=== PATIENT | male | born 1940 | race Caucasian/White ===

== ENCOUNTER 2022-03-30 10:48 | Inpatient (IN) ==
[2022-03-30] MEDS ORDERED: 0.9 % Sodium Chloride 1,000 ML IVC ONE (12:16)
[2022-03-30 12:28] LABS: Basophils % 0.6 %; Eosinophils # 0.1 K/mcL (0.0-0.6); Eosinophils % 1.5 %; Hematocrit 35.9 % (37.5-50.1); Hemoglobin 12.1 g/dL (12.9-16.9); Immature Granulocytes % 0.5 % (0-4); Lymphocytes % 15.5 %; Mean Corpuscular HGB Conc 33.7 g/dL (31.6-35.5); Mean Corpuscular Volume 92.1 fL (83.0-100.0); Mean Platelet Volume 9.5 fL (9.4-12.4); Monocytes # 0.5 K/mcL (0.0-1.3); Monocytes % 7.7 %; Platelet Count 210 K/mcL (140-400); Red Cell Distribution Width 14.2 % (11.5-14.5); Segmented Neutrophils % 74.2 %; White Blood Count 6.7 K/mcL (4.3-11.1)
[2022-03-30 12:35] LABS: INR 1.2; Prothrombin Time 13.8 Seconds (9.4-12.1)
[2022-03-30 12:38] LABS: Activated Partial Thrombo Time 33.3 Seconds (26.0-36.0)
[2022-03-30 13:03] LABS: BUN/Creatinine Ratio 23 (6-26); Blood Urea Nitrogen 16 mg/dL (8-23); Calcium 8.7 mg/dL (8.6-10.3); Carbon Dioxide 24 mEq/L (23-29); Chloride 102 mEq/L (98-107); Glucose 99 mg/dL (70-105); Osmolality,Calculated 277 (280-300); Potassium 4.2 mEq/L (3.5-5.1); Sodium 133 mEq/L (136-145); eGFR For African Americans > 60 (> 60); eGFR For Non-African Americans > 60 (> 60)
[2022-03-30] MEDS ORDERED: Isovue-370 500 ML BOTTLE IVP ONE (13:42)
[2022-03-30] MEDS ORDERED: 0.9 % Sodium Chloride 1,000 ML IV ONE (15:10)
[2022-03-30] MEDS ORDERED: cefTRIAXone 1,000 MG in 0.9 % Sodium Chloride 10 ML IVP ONE (15:17)
[2022-03-30] MEDS ORDERED: Azithromycin 500 MG in 0.9 % Sodium Chloride 250 ML IVPB ONE (15:57)
[2022-03-30] MEDS ORDERED: Naloxone 0.4 MG/ML INJ IVP PRN (16:39)
[2022-03-30] MEDS ORDERED: Ondansetron 4 MG/2 ML VIAL IVP PRN (16:39)
[2022-03-30] MEDS ORDERED: Acetaminophen 325 MG TABLET PO PRN (16:39)
[2022-03-30] MEDS ORDERED: Apixaban 5 MG TABLET PO SCH (16:45)
[2022-03-30] MEDS ORDERED: Perflutren Lipid Microsphere 1.3 ML in 0.9 % Sodium Chloride 8.7 ML IVP PRN (17:01)
[2022-03-30 17:26] LABS: Influenza A PCR Negative (Negative); Influenza B PCR Negative (Negative); Resp. Syncytial Virus PCR Negative (Negative)
[2022-03-30 17:37] LABS: Troponin I < 0.03 ng/mL (< 0.04)
[2022-03-30 17:51] LABS: Thyroid Stimulating Hormone 2.752 mcIU/mL (0.340-5.600)
[2022-03-30 18:13] LABS: SARS-CoV-2 by PCR (In House) Negative (Negative)
[2022-03-30] MEDS: Apixaban 5 MG TABLET PO SCH (20:17)
[2022-03-30] MEDS: Ipratropium/Albuterol Neb 3 ML IH SCH (20:46)
[2022-03-31] MEDS: Ipratropium/Albuterol Neb 3 ML IH SCH ×4 (03:52→20:23)
[2022-03-31] MEDS: Apixaban 5 MG TABLET PO SCH ×2 (08:51→20:26)
[2022-03-31] MEDS: Metoprolol XL (24 HR) Succ 50 MG TAB.ER.24H PO SCH (08:51)
[2022-03-31] MEDS: DilTIAZem 50 MG/50 ML IV.SOLN IVC SCH ×2 (09:02→18:27)
[2022-03-31 09:46] LABS: Basophils % 0.7 %; Eosinophils # 0.1 K/mcL (0.0-0.6); Eosinophils % 1.8 %; Hematocrit 33.1 % (37.5-50.1); Hemoglobin 11.2 g/dL (12.9-16.9); Immature Granulocytes % 0.2 % (0-4); Lymphocytes # 1.1 K/mcL (0.6-4.6); Lymphocytes % 19.1 %; Mean Corpuscular HGB Conc 33.8 g/dL (31.6-35.5); Mean Corpuscular Hemoglobin 31.5 pg (28.0-33.3); Mean Platelet Volume 9.7 fL (9.4-12.4); Monocytes # 0.4 K/mcL (0.0-1.3); Monocytes % 6.3 %; Platelet Count 191 K/mcL (140-400); Red Blood Count 3.56 M/mcL (4.19-5.50); Red Cell Distribution Width 14.4 % (11.5-14.5); Segmented Neutrophils % 71.9 %; White Blood Count 5.5 K/mcL (4.3-11.1)
[2022-03-31] MEDS ORDERED: Perflutren Lipid Microsphere 1.3 ML in 0.9 % Sodium Chloride 8.7 ML IVP PRN ×3 (10:50→10:59)
[2022-03-31 11:28] LABS: Alanine Aminotransferase 27 Units/L (7-52); Albumin 3.1 g/dL (3.5-5.7); Albumin/Globulin Ratio 1.1 (1.1-2.2); Alkaline Phosphatase 71 Units/L (34-104); Aspartate Amino Transferase 22 Units/L (13-39); BUN/Creatinine Ratio 18 (6-26); Bilirubin,Total 0.5 mg/dL (0.3-1.0); Blood Urea Nitrogen 12 mg/dL (8-23); Calcium 8.1 mg/dL (8.6-10.3); Carbon Dioxide 25 mEq/L (23-29); Chloride 106 mEq/L (98-107); Globulin 2.9 g/dL (2.4-3.5); Glucose 127 mg/dL (70-105); Osmolality,Calculated 279 (280-300); Potassium 4.3 mEq/L (3.5-5.1); Sodium 134 mEq/L (136-145); eGFR For African Americans > 60 (> 60); eGFR For Non-African Americans > 60 (> 60)
[2022-03-31] MEDS: cefTRIAXone 1,000 MG in 0.9 % Sodium Chloride 10 ML IVP SCH (15:22)
[2022-03-31] MEDS ORDERED: Azithromycin 500 MG in D5% in Water 250 ML IVPB SCH (18:00)
[2022-04-01] MEDS: DilTIAZem 50 MG/50 ML IV.SOLN IVC SCH ×2 (02:55→13:29)
[2022-04-01] MEDS: Ipratropium/Albuterol Neb 3 ML IH SCH (04:13)
[2022-04-01] MEDS ORDERED: Ipratropium/Albuterol Neb 3 ML IH PRN (05:59)
[2022-04-01 06:09] LABS: Basophils % 0.7 %; Eosinophils # 0.1 K/mcL (0.0-0.6); Eosinophils % 2.3 %; Hematocrit 34.1 % (37.5-50.1); Hemoglobin 11.6 g/dL (12.9-16.9); Immature Granulocytes % 0.2 % (0-4); Lymphocytes # 1.5 K/mcL (0.6-4.6); Lymphocytes % 23.7 %; Mean Corpuscular Hemoglobin 31.4 pg (28.0-33.3); Mean Corpuscular Volume 92.2 fL (83.0-100.0); Mean Platelet Volume 9.7 fL (9.4-12.4); Monocytes # 0.5 K/mcL (0.0-1.3); Monocytes % 8.3 %; Platelet Count 185 K/mcL (140-400); Red Cell Distribution Width 14.4 % (11.5-14.5); Segmented Neutrophils % 64.8 %; White Blood Count 6.1 K/mcL (4.3-11.1)
[2022-04-01 06:39] LABS: BUN/Creatinine Ratio 21 (6-26); Blood Urea Nitrogen 12 mg/dL (8-23); Calcium 8.2 mg/dL (8.6-10.3); Carbon Dioxide 23 mEq/L (23-29); Chloride 107 mEq/L (98-107); Glucose 109 mg/dL (70-105); Osmolality,Calculated 278 (280-300); Potassium 3.9 mEq/L (3.5-5.1); Sodium 134 mEq/L (136-145); eGFR For African Americans > 60 (> 60); eGFR For Non-African Americans > 60 (> 60)
[2022-04-01] MEDS: Metoprolol XL (24 HR) Succ 50 MG TAB.ER.24H PO SCH (09:31)
[2022-04-01] MEDS: Azithromycin 250 MG TABLET PO SCH (09:31)
[2022-04-01] MEDS: Venlafaxine XR (24 HR) 37.5 MG CAP.ER.24H PO SCH (09:31)
[2022-04-01] MEDS: Finasteride 5 MG TABLET PO SCH (09:31)
[2022-04-01] MEDS: Apixaban 5 MG TABLET PO SCH ×2 (09:31→21:06)
[2022-04-01 10:13] LABS: Magnesium 1.8 mg/dL (1.6-2.6)
[2022-04-01] MEDS ORDERED: Perflutren Lipid Microsphere 1.3 ML in 0.9 % Sodium Chloride 8.7 ML IVP PRN (11:58)
[2022-04-01] MEDS: DilTIAZem CD (24hr) 120 MG CAP.ER.24H PO SCH (12:25)
[2022-04-01] MEDS: cefTRIAXone 1,000 MG in 0.9 % Sodium Chloride 10 ML IVP SCH (15:39)
[2022-04-02 03:12] LABS: BUN/Creatinine Ratio 23 (6-26); Blood Urea Nitrogen 15 mg/dL (8-23); Calcium 8.3 mg/dL (8.6-10.3); Carbon Dioxide 22 mEq/L (23-29); Chloride 105 mEq/L (98-107); Glucose 110 mg/dL (70-105); Magnesium 1.8 mg/dL (1.6-2.6); Osmolality,Calculated 279 (280-300); Potassium 4.2 mEq/L (3.5-5.1); Sodium 134 mEq/L (136-145); eGFR For African Americans > 60 (> 60); eGFR For Non-African Americans > 60 (> 60)
[2022-04-02] MEDS: Venlafaxine XR (24 HR) 37.5 MG CAP.ER.24H PO SCH (08:07)
[2022-04-02] MEDS: Apixaban 5 MG TABLET PO SCH (08:07)
[2022-04-02] MEDS: Finasteride 5 MG TABLET PO SCH (08:07)
[2022-04-02] MEDS: DilTIAZem CD (24hr) 120 MG CAP.ER.24H PO SCH (08:07)
[2022-04-02] MEDS: Azithromycin 250 MG TABLET PO SCH (08:07)
[2022-04-02] MEDS: Metoprolol XL (24 HR) Succ 50 MG TAB.ER.24H PO SCH (08:08)
[2022-04-02 11:41] VITALS: O2SAT 97
[2022-04-02 15:44] VITALS: BP 114/61; PULSE 79; TEMP 98
[2022-04-02] MEDS ORDERED: Cefdinir 300 MG CAPSULE PO SCH (21:00)
[2022-04-03] MEDS ORDERED: DilTIAZem CD (24hr) 180 MG CAP.ER.24H PO SCH (09:00)
[2022-04-03] MEDS ORDERED: Magnesium Oxide 400 MG TABLET PO SCH (09:00)
== END 2022-04-02 18:10 | disposition home or self-care (01) | DRG 308 ==
LOC: 2NENU 10:48 → EMEROOARM 10:48 → SUATTDRO 17:55 → 2NENU 19:30
PROVIDERS: ADMIT Internal Medicine; ATTEND General Practice

== ENCOUNTER 2022-05-27 17:55 | Inpatient (IN) ==
[2022-05-27] MEDS ORDERED: Ondansetron 4 MG/2 ML VIAL IVP PRN (20:30)
[2022-05-27] MEDS ORDERED: Morphine Sulfate 2 MG/ML SYRINGE IVP PRN (20:30)
[2022-05-27 20:43] LABS: Basophils % 0.2 %; Eosinophils # 0.1 K/mcL (0.0-0.6); Eosinophils % 1.3 %; Hematocrit 30.3 % (37.5-50.1); Hemoglobin 10.8 g/dL (12.9-16.9); Immature Granulocytes % 0.4 % (0-4); Lymphocytes % 11.6 %; Mean Corpuscular HGB Conc 35.6 g/dL (31.6-35.5); Mean Corpuscular Hemoglobin 31.8 pg (28.0-33.3); Mean Corpuscular Volume 89.1 fL (83.0-100.0); Mean Platelet Volume 8.9 fL (9.4-12.4); Monocytes # 0.6 K/mcL (0.0-1.3); Monocytes % 6.6 %; Neutrophils # 6.7 K/mcL (1.6-8.9); Platelet Count 180 K/mcL (140-400); Red Cell Distribution Width 14.3 % (11.5-14.5); Segmented Neutrophils % 79.9 %; White Blood Count 8.4 K/mcL (4.3-11.1)
[2022-05-27 20:50] LABS: INR 1.5; Prothrombin Time 16.9 Seconds (9.4-12.1)
[2022-05-27 20:52] LABS: Activated Partial Thrombo Time 34.8 Seconds (26.0-36.0)
[2022-05-27 21:02] LABS: BUN/Creatinine Ratio 33 (6-26); Blood Urea Nitrogen 19 mg/dL (8-23); Calcium 7.6 mg/dL (8.6-10.3); Carbon Dioxide 23 mEq/L (23-29); Chloride 101 mEq/L (98-107); Glucose 115 mg/dL (70-105); Osmolality,Calculated 273 (280-300); Potassium 4.3 mEq/L (3.5-5.1); Sodium 130 mEq/L (136-145); eGFR For African Americans > 60 (> 60); eGFR For Non-African Americans > 60 (> 60)
[2022-05-28] MEDS ORDERED: Naloxone 0.4 MG/ML INJ IVP PRN (00:12)
[2022-05-28] MEDS ORDERED: Acetaminophen 325 MG TABLET PO PRN (00:12)
[2022-05-28] MEDS ORDERED: Ondansetron 4 MG/2 ML VIAL IVP PRN ×2 (00:12→14:11)
[2022-05-28] MEDS ORDERED: 0.9 % Sodium Chloride 1,000 ML IVC SCH (00:15)
[2022-05-28 03:19] LABS: Hematocrit 30.6 % (37.5-50.1); Hemoglobin 10.6 g/dL (12.9-16.9); Mean Corpuscular HGB Conc 34.6 g/dL (31.6-35.5); Mean Corpuscular Hemoglobin 31.3 pg (28.0-33.3); Mean Corpuscular Volume 90.3 fL (83.0-100.0); Mean Platelet Volume 9.6 fL (9.4-12.4); Platelet Count 187 K/mcL (140-400); Red Blood Count 3.39 M/mcL (4.19-5.50); Red Cell Distribution Width 14.4 % (11.5-14.5); White Blood Count 10.4 K/mcL (4.3-11.1)
[2022-05-28 03:36] LABS: BUN/Creatinine Ratio 36 (6-26); Blood Urea Nitrogen 21 mg/dL (8-23); Calcium 8.6 mg/dL (8.6-10.3); Carbon Dioxide 21 mEq/L (23-29); Chloride 101 mEq/L (98-107); Glucose 137 mg/dL (70-105); Osmolality,Calculated 273 (280-300); Potassium 4.5 mEq/L (3.5-5.1); Sodium 129 mEq/L (136-145); eGFR For African Americans > 60 (> 60); eGFR For Non-African Americans > 60 (> 60)
[2022-05-28] MEDS ORDERED: *HR* Metoprolol 5 MG/5 ML VIAL IVP PRN (04:19)
[2022-05-28] MEDS ORDERED: Metoprolol XL (24 HR) Succ 50 MG TAB.ER.24H PO SCH (09:00)
[2022-05-28] MEDS ORDERED: *HR* HYDROmorphone PF 0.5 MG/0.5 ML SYRINGE IVP PRN (09:14)
[2022-05-28] MEDS ORDERED: *HR* FentaNYL (PF) 100 MCG/2 ML VIAL IVP PRN (09:14)
[2022-05-28] MEDS ORDERED: *HR* Labetalol 20 MG/4 ML SYRINGE IVP PRN (09:14)
[2022-05-28] MEDS ORDERED: Ipratropium Neb 0.5 MG NEBULIZER IH PRN (09:14)
[2022-05-28] MEDS ORDERED: Ondansetron 4 MG/2 ML VIAL ONE (10:31)
[2022-05-28] MEDS ORDERED: Lidocaine -MPF 2% 5 ML VIAL ONE (10:31)
[2022-05-28] MEDS ORDERED: *HR* FentaNYL (PF) 100 MCG/2 ML VIAL ONE ×2 (10:32→11:43)
[2022-05-28] MEDS ORDERED: Heparin 1,000 UNITS/500 mL 500 ML ONE (10:53)
[2022-05-28] MEDS ORDERED: Ipratropium/Albuterol Neb 3 ML ONE (10:55)
[2022-05-28] MEDS ORDERED: *HR* Phenylephrine 10 MG/ML VIAL ONE (10:56)
[2022-05-28] MEDS ORDERED: *HR* FentaNYL (PF) 100 MCG/2 ML VIAL IVP ONE (10:58)
[2022-05-28] MEDS ORDERED: Ipratropium/Albuterol Neb 3 ML IH ONE (10:58)
[2022-05-28] MEDS ORDERED: *HR* Vasopressin 20 UNIT/ML VIAL ONE (11:33)
[2022-05-28] MEDS: CeFAZolin 2 GM/120 ML BAG IVPB SCH (17:46)
[2022-05-28] MEDS: *HR* Metoprolol 5 MG/5 ML VIAL IVP PRN (17:59)
[2022-05-29] MEDS: CeFAZolin 2 GM/120 ML BAG IVPB SCH (01:01)
[2022-05-29] MEDS: *HR* Metoprolol 5 MG/5 ML VIAL IVP PRN ×2 (02:57→13:18)
[2022-05-29] MEDS ORDERED: Povidone-Iodine 45 ML, Sodium Chloride IRRigation 1,000 ML IR ONE (06:00)
[2022-05-29] MEDS ORDERED: TOTAL JOINT MIXTURE (100ML) INTRAART ONE (06:00)
[2022-05-29 06:06] LABS: Basophils % 0.1 %; Hematocrit 24.4 % (37.5-50.1); Hemoglobin 8.4 g/dL (12.9-16.9); Immature Granulocytes % 0.5 % (0-4); Lymphocytes # 0.9 K/mcL (0.6-4.6); Lymphocytes % 7.1 %; Mean Corpuscular HGB Conc 34.4 g/dL (31.6-35.5); Mean Corpuscular Hemoglobin 31.3 pg (28.0-33.3); Mean Platelet Volume 9.6 fL (9.4-12.4); Monocytes # 1.3 K/mcL (0.0-1.3); Monocytes % 9.7 %; Neutrophils # 10.6 K/mcL (1.6-8.9); Platelet Count 130 K/mcL (140-400); Red Blood Count 2.68 M/mcL (4.19-5.50); Red Cell Distribution Width 14.5 % (11.5-14.5); Segmented Neutrophils % 82.6 %; White Blood Count 12.8 K/mcL (4.3-11.1)
[2022-05-29 06:40] LABS: Alanine Aminotransferase 14 Units/L (7-52); Albumin 3.6 g/dL (3.5-5.7); Albumin/Globulin Ratio 1.7 (1.1-2.2); Alkaline Phosphatase 63 Units/L (34-104); Aspartate Amino Transferase 16 Units/L (13-39); BUN/Creatinine Ratio 41 (6-26); Bilirubin,Total 0.6 mg/dL (0.3-1.0); Blood Urea Nitrogen 29 mg/dL (8-23); Calcium 8.6 mg/dL (8.6-10.3); Carbon Dioxide 22 mEq/L (23-29); Chloride 101 mEq/L (98-107); Globulin 2.1 g/dL (2.4-3.5); Glucose 124 mg/dL (70-105); Osmolality,Calculated 275 (280-300); Potassium 4.6 mEq/L (3.5-5.1); Sodium 129 mEq/L (136-145); Total Protein 5.7 g/dL (6.4-8.9); eGFR For African Americans > 60 (> 60); eGFR For Non-African Americans > 60 (> 60)
[2022-05-29] MEDS: Metoprolol XL (24 HR) Succ 50 MG TAB.ER.24H PO SCH (08:24)
[2022-05-29] MEDS: Ringers Solution, Lactated 1,000 ML IVC SCH (08:24)
[2022-05-29 13:40] LABS: Squamous Epithelial Cell,Urine Few per hpf (None-Few)
[2022-05-29 13:50] LABS: Bilirubin,Urine Negative (Negative); Blood,Urine Large (Negative); Clarity,Urine Slightly Cloudy (Clear); Color,Urine Colorless (Yellow); Glucose,Urine (UA) Normal (Normal); Ketones,Urine Negative (Negative); Specific Gravity,Urine 1.024 (1.010-1.025)
[2022-05-29 13:51] LABS: Leukocyte Esterase,Urine Trace (Negative); Nitrite,Urine Negative (Negative); PH,Urine 6.5 pH Units (5.0-8.0); Protein,Urine 100 mg/dL (Neg-Trace); Urobilinogen,Urine Normal (Normal)
[2022-05-30 01:47] LABS: Basophils % 0.1 %; Eosinophils % 0.2 %; Hematocrit 22.7 % (37.5-50.1); Hemoglobin 7.9 g/dL (12.9-16.9); Immature Granulocytes % 0.4 % (0-4); Lymphocytes # 1.1 K/mcL (0.6-4.6); Lymphocytes % 10.5 %; Mean Corpuscular HGB Conc 34.8 g/dL (31.6-35.5); Mean Corpuscular Hemoglobin 31.6 pg (28.0-33.3); Mean Corpuscular Volume 90.8 fL (83.0-100.0); Mean Platelet Volume 9.8 fL (9.4-12.4); Monocytes # 0.9 K/mcL (0.0-1.3); Monocytes % 9.1 %; Neutrophils # 8.1 K/mcL (1.6-8.9); Platelet Count 125 K/mcL (140-400); Red Cell Distribution Width 14.7 % (11.5-14.5); Segmented Neutrophils % 79.7 %; White Blood Count 10.1 K/mcL (4.3-11.1)
[2022-05-30 01:56] LABS: Alanine Aminotransferase 12 Units/L (7-52); Albumin 3.3 g/dL (3.5-5.7); Albumin/Globulin Ratio 1.4 (1.1-2.2); Alkaline Phosphatase 55 Units/L (34-104); Aspartate Amino Transferase 22 Units/L (13-39); BUN/Creatinine Ratio 40 (6-26); Bilirubin,Total 0.7 mg/dL (0.3-1.0); Blood Urea Nitrogen 22 mg/dL (8-23); Calcium 8.3 mg/dL (8.6-10.3); Carbon Dioxide 22 mEq/L (23-29); Chloride 101 mEq/L (98-107); Globulin 2.4 g/dL (2.4-3.5); Glucose 104 mg/dL (70-105); Osmolality,Calculated 274 (280-300); Sodium 130 mEq/L (136-145); Total Protein 5.7 g/dL (6.4-8.9); eGFR For African Americans > 60 (> 60); eGFR For Non-African Americans > 60 (> 60)
[2022-05-30] MEDS: Finasteride 5 MG TABLET PO SCH (08:09)
[2022-05-30] MEDS: Venlafaxine XR (24 HR) 37.5 MG CAP.ER.24H PO SCH (08:09)
[2022-05-30] MEDS: Acetaminophen 325 MG TABLET PO PRN ×2 (08:09→14:03)
[2022-05-30] MEDS: Megestrol Acetate 400 MG/10 ML UDC PO SCH ×2 (08:13→21:26)
[2022-05-30] MEDS: Apixaban 5 MG TABLET PO SCH ×2 (08:13→21:26)
[2022-05-30] MEDS: DilTIAZem CD (24hr) 180 MG CAP.ER.24H PO SCH (08:23)
[2022-05-30] MEDS: Metoprolol XL (24 HR) Succ 50 MG TAB.ER.24H PO SCH (08:24)
[2022-05-30] MEDS: Metoprolol XL (24 HR) Succ 25 MG TAB.ER.24H PO SCH (12:33)
[2022-05-30] MEDS: Ringers Solution, Lactated 1,000 ML IVC SCH (12:34)
[2022-05-30 18:51] LABS: Hematocrit 20.9 % (37.5-50.1); Hemoglobin 7.3 g/dL (12.9-16.9)
[2022-05-31 01:54] LABS: Basophils % 0.3 %; Eosinophils # 0.1 K/mcL (0.0-0.6); Eosinophils % 0.9 %; Hematocrit 20.4 % (37.5-50.1); Hemoglobin 7.1 g/dL (12.9-16.9); Immature Granulocytes % 0.4 % (0-4); Lymphocytes # 1.2 K/mcL (0.6-4.6); Lymphocytes % 15.9 %; Mean Corpuscular HGB Conc 34.8 g/dL (31.6-35.5); Mean Corpuscular Hemoglobin 31.4 pg (28.0-33.3); Mean Corpuscular Volume 90.3 fL (83.0-100.0); Mean Platelet Volume 9.8 fL (9.4-12.4); Monocytes # 0.7 K/mcL (0.0-1.3); Monocytes % 8.7 %; Neutrophils # 5.6 K/mcL (1.6-8.9); Platelet Count 123 K/mcL (140-400); Red Blood Count 2.26 M/mcL (4.19-5.50); Red Cell Distribution Width 14.7 % (11.5-14.5); Segmented Neutrophils % 73.8 %; White Blood Count 7.6 K/mcL (4.3-11.1)
[2022-05-31 02:14] LABS: BUN/Creatinine Ratio 38 (6-26); Blood Urea Nitrogen 19 mg/dL (8-23); Calcium 7.8 mg/dL (8.6-10.3); Carbon Dioxide 22 mEq/L (23-29); Chloride 102 mEq/L (98-107); Glucose 105 mg/dL (70-105); Magnesium 1.7 mg/dL (1.6-2.6); Osmolality,Calculated 273 (280-300); Phosphorous 2.9 mg/dL (2.7-4.5); Potassium 3.7 mEq/L (3.5-5.1); Sodium 130 mEq/L (136-145); eGFR For African Americans > 60 (> 60); eGFR For Non-African Americans > 60 (> 60)
[2022-05-31 02:23] LABS: % Iron Saturation 14 % (20-55); Iron 29 mcg/dL (65-175); Transferrin 151 mg/dL (203-362)
[2022-05-31 02:32] LABS: Ferritin 195 ng/mL (20-250)
[2022-05-31 02:38] LABS: Folate 15.8 ng/mL (3.0-16.0)
[2022-05-31] MEDS: Ringers Solution, Lactated 1,000 ML IVC SCH (04:42)
[2022-05-31] MEDS: DilTIAZem CD (24hr) 180 MG CAP.ER.24H PO SCH (09:04)
[2022-05-31] MEDS: Venlafaxine XR (24 HR) 37.5 MG CAP.ER.24H PO SCH (09:04)
[2022-05-31] MEDS: Megestrol Acetate 400 MG/10 ML UDC PO SCH ×2 (09:04→20:28)
[2022-05-31] MEDS: Finasteride 5 MG TABLET PO SCH (09:05)
[2022-05-31] MEDS: Metoprolol XL (24 HR) Succ 25 MG TAB.ER.24H PO SCH (09:05)
[2022-05-31] MEDS: Apixaban 5 MG TABLET PO SCH (09:05)
[2022-05-31] MEDS: Acetaminophen 325 MG TABLET PO PRN (09:21)
[2022-05-31] MEDS ORDERED: *HR* Metoprolol 5 MG/5 ML VIAL IVP PRN (10:38)
[2022-05-31] MEDS: *HR* Digoxin 0.5 MG/2 ML AMPUL IVP SCH ×3 (10:39→23:34)
[2022-06-01] MEDS: *HR* Digoxin 0.5 MG/2 ML AMPUL IVP SCH (04:34)
[2022-06-01 05:00] LABS: Basophils % 0.3 %; Eosinophils # 0.2 K/mcL (0.0-0.6); Eosinophils % 2.5 %; Hematocrit 21.1 % (37.5-50.1); Hemoglobin 7.3 g/dL (12.9-16.9); Immature Granulocytes % 0.3 % (0-4); Lymphocytes # 1.1 K/mcL (0.6-4.6); Lymphocytes % 17.9 %; Mean Corpuscular HGB Conc 34.6 g/dL (31.6-35.5); Mean Corpuscular Hemoglobin 31.5 pg (28.0-33.3); Mean Corpuscular Volume 90.9 fL (83.0-100.0); Mean Platelet Volume 9.5 fL (9.4-12.4); Monocytes # 0.6 K/mcL (0.0-1.3); Monocytes % 9.4 %; Neutrophils # 4.4 K/mcL (1.6-8.9); Platelet Count 165 K/mcL (140-400); Red Blood Count 2.32 M/mcL (4.19-5.50); Red Cell Distribution Width 14.8 % (11.5-14.5); Segmented Neutrophils % 69.6 %; White Blood Count 6.3 K/mcL (4.3-11.1)
[2022-06-01 05:19] LABS: Alanine Aminotransferase 20 Units/L (7-52); Albumin/Globulin Ratio 1.4 (1.1-2.2); Alkaline Phosphatase 49 Units/L (34-104); Aspartate Amino Transferase 19 Units/L (13-39); BUN/Creatinine Ratio 39 (6-26); Bilirubin,Total 0.8 mg/dL (0.3-1.0); Blood Urea Nitrogen 19 mg/dL (8-23); Calcium 7.8 mg/dL (8.6-10.3); Carbon Dioxide 21 mEq/L (23-29); Chloride 105 mEq/L (98-107); Globulin 2.2 g/dL (2.4-3.5); Glucose 99 mg/dL (70-105); Osmolality,Calculated 278 (280-300); Potassium 3.7 mEq/L (3.5-5.1); Sodium 133 mEq/L (136-145); Total Protein 5.2 g/dL (6.4-8.9); eGFR For African Americans > 60 (> 60); eGFR For Non-African Americans > 60 (> 60)
[2022-06-01] MEDS: DilTIAZem CD (24hr) 180 MG CAP.ER.24H PO SCH (08:49)
[2022-06-01] MEDS: Venlafaxine XR (24 HR) 37.5 MG CAP.ER.24H PO SCH (08:50)
[2022-06-01] MEDS: Megestrol Acetate 400 MG/10 ML UDC PO SCH ×2 (08:50→22:28)
[2022-06-01] MEDS: Finasteride 5 MG TABLET PO SCH (08:50)
[2022-06-01] MEDS: Metoprolol XL (24 HR) Succ 50 MG TAB.ER.24H PO SCH (08:58)
[2022-06-01] MEDS: Apixaban 5 MG TABLET PO SCH (22:27)
[2022-06-02 01:38] LABS: Basophils % 0.5 %; Eosinophils # 0.2 K/mcL (0.0-0.6); Eosinophils % 2.4 %; Hematocrit 22.6 % (37.5-50.1); Hemoglobin 7.9 g/dL (12.9-16.9); Immature Granulocytes % 0.3 % (0-4); Lymphocytes # 1.3 K/mcL (0.6-4.6); Mean Corpuscular Hemoglobin 32.2 pg (28.0-33.3); Mean Corpuscular Volume 92.2 fL (83.0-100.0); Mean Platelet Volume 9.4 fL (9.4-12.4); Monocytes # 0.6 K/mcL (0.0-1.3); Monocytes % 9.8 %; Neutrophils # 4.1 K/mcL (1.6-8.9); Platelet Count 180 K/mcL (140-400); Red Blood Count 2.45 M/mcL (4.19-5.50); Red Cell Distribution Width 14.9 % (11.5-14.5); White Blood Count 6.3 K/mcL (4.3-11.1)
[2022-06-02 01:57] LABS: Alanine Aminotransferase 28 Units/L (7-52); Albumin/Globulin Ratio 1.3 (1.1-2.2); Alkaline Phosphatase 49 Units/L (34-104); Aspartate Amino Transferase 23 Units/L (13-39); BUN/Creatinine Ratio 38 (6-26); Bilirubin,Total 0.9 mg/dL (0.3-1.0); Blood Urea Nitrogen 19 mg/dL (8-23); Carbon Dioxide 22 mEq/L (23-29); Chloride 106 mEq/L (98-107); Globulin 2.4 g/dL (2.4-3.5); Glucose 98 mg/dL (70-105); Osmolality,Calculated 280 (280-300); Potassium 3.9 mEq/L (3.5-5.1); Sodium 134 mEq/L (136-145); Total Protein 5.4 g/dL (6.4-8.9); eGFR For African Americans > 60 (> 60); eGFR For Non-African Americans > 60 (> 60)
[2022-06-02] MEDS: Apixaban 5 MG TABLET PO SCH ×2 (10:49→22:25)
[2022-06-02] MEDS: Finasteride 5 MG TABLET PO SCH (10:49)
[2022-06-02] MEDS: DilTIAZem CD (24hr) 180 MG CAP.ER.24H PO SCH (10:49)
[2022-06-02] MEDS: Metoprolol XL (24 HR) Succ 50 MG TAB.ER.24H PO SCH (10:50)
[2022-06-02] MEDS: Venlafaxine XR (24 HR) 37.5 MG CAP.ER.24H PO SCH (10:50)
[2022-06-02] MEDS: Megestrol Acetate 400 MG/10 ML UDC PO SCH ×2 (10:52→22:26)
[2022-06-02] MEDS ORDERED: Metoprolol XL (24 HR) Succ 25 MG TAB.ER.24H PO ONE (13:30)
[2022-06-03 04:38] LABS: Basophils % 0.3 %; Eosinophils # 0.2 K/mcL (0.0-0.6); Eosinophils % 2.2 %; Hematocrit 23.5 % (37.5-50.1); Hemoglobin 7.9 g/dL (12.9-16.9); Immature Granulocytes % 0.3 % (0-4); Lymphocytes # 1.4 K/mcL (0.6-4.6); Lymphocytes % 21.3 %; Mean Corpuscular HGB Conc 33.6 g/dL (31.6-35.5); Mean Corpuscular Hemoglobin 31.7 pg (28.0-33.3); Mean Corpuscular Volume 94.4 fL (83.0-100.0); Mean Platelet Volume 9.1 fL (9.4-12.4); Monocytes # 0.7 K/mcL (0.0-1.3); Monocytes % 9.6 %; Neutrophils # 4.5 K/mcL (1.6-8.9); Platelet Count 194 K/mcL (140-400); Red Blood Count 2.49 M/mcL (4.19-5.50); Red Cell Distribution Width 15.2 % (11.5-14.5); Segmented Neutrophils % 66.3 %; White Blood Count 6.8 K/mcL (4.3-11.1)
[2022-06-03 05:01] LABS: Alanine Aminotransferase 30 Units/L (7-52); Albumin 3.1 g/dL (3.5-5.7); Albumin/Globulin Ratio 1.4 (1.1-2.2); Alkaline Phosphatase 53 Units/L (34-104); Aspartate Amino Transferase 22 Units/L (13-39); BUN/Creatinine Ratio 44 (6-26); Blood Urea Nitrogen 22 mg/dL (8-23); Calcium 7.9 mg/dL (8.6-10.3); Carbon Dioxide 23 mEq/L (23-29); Chloride 106 mEq/L (98-107); Globulin 2.2 g/dL (2.4-3.5); Glucose 105 mg/dL (70-105); Osmolality,Calculated 282 (280-300); Sodium 134 mEq/L (136-145); Total Protein 5.3 g/dL (6.4-8.9); eGFR For African Americans > 60 (> 60); eGFR For Non-African Americans > 60 (> 60)
[2022-06-03] MEDS: Apixaban 5 MG TABLET PO SCH (08:59)
[2022-06-03] MEDS ORDERED: Metoprolol XL (24 HR) Succ 50 MG TAB.ER.24H PO SCH (09:00)
[2022-06-03] MEDS: DilTIAZem CD (24hr) 180 MG CAP.ER.24H PO SCH (09:00)
[2022-06-03] MEDS: Megestrol Acetate 400 MG/10 ML UDC PO SCH (09:00)
[2022-06-03] MEDS: Venlafaxine XR (24 HR) 37.5 MG CAP.ER.24H PO SCH (09:00)
[2022-06-03] MEDS: Finasteride 5 MG TABLET PO SCH (09:00)
[2022-06-03] MEDS: Acetaminophen 325 MG TABLET PO PRN (09:00)
[2022-06-03 14:39] LABS: Adenovirus Not Detected (Not Detect); Bordetella Pertussis Not Detected (Not Detect); Chlamydophila pneumoniae Not Detected (Not Detect); Coronavirus 229E Not Detected (Not Detect); Coronavirus HKU1 Not Detected (Not Detect); Coronavirus NL63 Not Detected (Not Detect); Coronavirus OC43 Not Detected (Not Detect); Human Metapneumovirus Not Detected (Not Detect); Human Rhinovirus/Enterovirus Not Detected (Not Detect); Influenza A Subtype 2009 H1 Not Detected (Not Detect); Influenza B Not Detected (Not Detect); Mycoplasma pneumoniae Not Detected (Not Detect); Parainfluenza Virus 1 Not Detected (Not Detect); Parainfluenza Virus 2 Not Detected (Not Detect); Parainfluenza Virus 3 Not Detected (Not Detect); Parainfluenza Virus 4 Not Detected (Not Detect); Respiratory Syncytial Virus Not Detected (Not Detect); SARS-CoV-2 Not Detected (Not Detect)
[2022-06-03 16:54] VITALS: BP 105/67; PULSE 98; TEMP 98.3; O2SAT 99
== END 2022-06-03 17:33 | DRG 481 ==
LOC: EMEROOARM 17:55 → 3ANU 17:55 → SUATTDRO 05-28 19:49 → 3ANU 05-28 22:15
PROVIDERS: ADMIT Internal Medicine; ATTEND Internal Medicine

== ENCOUNTER 2022-06-13 18:59 | Observation (INO) ==
[2022-06-13 21:10] LABS: Basophils % 0.2 %; Eosinophils # 0.1 K/mcL (0.0-0.6); Eosinophils % 1.1 %; Hematocrit 27.9 % (37.5-50.1); Hemoglobin 9.4 g/dL (12.9-16.9); Immature Granulocytes % 0.4 % (0-4); Lymphocytes # 0.7 K/mcL (0.6-4.6); Lymphocytes % 7.5 %; Mean Corpuscular HGB Conc 33.7 g/dL (31.6-35.5); Mean Corpuscular Hemoglobin 32.4 pg (28.0-33.3); Mean Corpuscular Volume 96.2 fL (83.0-100.0); Monocytes # 0.6 K/mcL (0.0-1.3); Monocytes % 6.7 %; Neutrophils # 8.1 K/mcL (1.6-8.9); Platelet Count 211 K/mcL (140-400); Red Cell Distribution Width 16.5 % (11.5-14.5); Segmented Neutrophils % 84.1 %; White Blood Count 9.6 K/mcL (4.3-11.1)
[2022-06-13 21:13] LABS: Amphetamine Screen,Urine Negative ng/mL (Cutoff=1000); Barbiturate Screen,Urine Negative ng/mL (Cutoff=200); Benzodiazepines Screen,Urine Negative ng/mL (Cutoff=200); Cannabinoid Screen,Urine Negative ng/mL (Cutoff = 50); Cocaine Screen,Urine Negative ng/mL (Cutoff= 300); Opiate Screen,Urine Negative ng/mL (Cutoff=300); Phencyclidine Screen,Urine Negative ng/mL (Cutoff=25)
[2022-06-13 21:13] LABS: Bilirubin,Urine Negative (Negative); Blood,Urine Large (Negative); Calcium Oxalate Crystals,Urine Present per hpf; Clarity,Urine Ex.Turbid (Clear); Color,Urine Yellow (Yellow); Glucose,Urine (UA) Normal (Normal); Ketones,Urine Negative (Negative); Leukocyte Esterase,Urine Large (Negative); Mucus,Urine Many per lpf (None-Few); Nitrite,Urine Positive (Negative); Protein,Urine >=300 mg/dL (Neg-Trace); RBC,Urine TNTC per hpf (0-3); Transitional Epi Cells,Urine Few per hpf (None-Few); Urobilinogen,Urine Normal (Normal); WBC,Urine TNTC per hpf (0-3)
[2022-06-13 21:20] LABS: INR 1.4; Prothrombin Time 15.7 Seconds (9.4-12.1)
[2022-06-13] MEDS ORDERED: cefTRIAXone 1,000 MG in 0.9 % Sodium Chloride Mini Bag 100 ML IVPB ONE (21:22)
[2022-06-13 21:23] LABS: Activated Partial Thrombo Time 28.1 Seconds (26.0-36.0)
[2022-06-13 21:45] LABS: Influenza A PCR Negative (Negative); Influenza B PCR Negative (Negative); Resp. Syncytial Virus PCR Negative (Negative); SARS-CoV-2 by PCR (In House) Negative (Negative)
[2022-06-13 21:50] LABS: Alanine Aminotransferase 19 Units/L (7-52); Albumin 3.5 g/dL (3.5-5.7); Albumin/Globulin Ratio 1.3 (1.1-2.2); Alkaline Phosphatase 123 Units/L (34-104); Aspartate Amino Transferase 14 Units/L (13-39); BUN/Creatinine Ratio 31 (6-26); Bilirubin,Direct 0.3 mg/dL (0.0-0.2); Bilirubin,Indirect 0.6 mg/dL (0.0-1.0); Bilirubin,Total 0.9 mg/dL (0.3-1.0); Blood Urea Nitrogen 22 mg/dL (8-23); Calcium 8.5 mg/dL (8.6-10.3); Carbon Dioxide 25 mEq/L (23-29); Chloride 105 mEq/L (98-107); Creatine Kinase 29 Units/L (30-223); Ethanol < 10 mg/dL (Less than 10); Globulin 2.7 g/dL (2.4-3.5); Glucose 104 mg/dL (70-105); Osmolality,Calculated 284 (280-300); Sodium 135 mEq/L (136-145); Thyroid Stimulating Hormone 3.178 mcIU/mL (0.340-5.600); Total Protein 6.2 g/dL (6.4-8.9); Troponin I < 0.03 ng/mL (< 0.04); eGFR For African Americans > 60 (> 60); eGFR For Non-African Americans > 60 (> 60)
[2022-06-14] MEDS ORDERED: Ondansetron ODT 4 MG TAB.RAPDIS SL PRN (00:32)
[2022-06-14] MEDS ORDERED: Naloxone 0.4 MG/ML INJ IVP PRN (00:32)
[2022-06-14] MEDS ORDERED: Melatonin 3 MG TABLET PO PRN (00:32)
[2022-06-14] MEDS ORDERED: 0.9 % Sodium Chloride 500 ML IVC ONE (01:35)
[2022-06-14] MEDS ORDERED: *HR* Metoprolol 5 MG/5 ML VIAL IVP PRN (01:40)
[2022-06-14] MEDS ORDERED: 0.9 % Sodium Chloride 500 ML ONE (01:41)
[2022-06-14] MEDS: 0.9 % Sodium Chloride 1,000 ML IVC SCH ×3 (02:07→20:28)
[2022-06-14 05:30] LABS: Basophils % 0.3 %; Eosinophils # 0.1 K/mcL (0.0-0.6); Eosinophils % 1.8 %; Hematocrit 22.9 % (37.5-50.1); Hemoglobin 7.9 g/dL (12.9-16.9); Immature Granulocytes % 0.3 % (0-4); Lymphocytes # 0.7 K/mcL (0.6-4.6); Lymphocytes % 9.4 %; Mean Corpuscular HGB Conc 34.5 g/dL (31.6-35.5); Mean Corpuscular Hemoglobin 32.8 pg (28.0-33.3); Mean Platelet Volume 9.2 fL (9.4-12.4); Monocytes # 0.6 K/mcL (0.0-1.3); Monocytes % 7.1 %; Neutrophils # 6.4 K/mcL (1.6-8.9); Platelet Count 180 K/mcL (140-400); Red Blood Count 2.41 M/mcL (4.19-5.50); Red Cell Distribution Width 16.3 % (11.5-14.5); Segmented Neutrophils % 81.1 %; White Blood Count 7.9 K/mcL (4.3-11.1)
[2022-06-14 06:29] LABS: Alanine Aminotransferase 16 Units/L (7-52); Albumin 2.9 g/dL (3.5-5.7); Albumin/Globulin Ratio 1.5 (1.1-2.2); Alkaline Phosphatase 113 Units/L (34-104); Aspartate Amino Transferase 13 Units/L (13-39); BUN/Creatinine Ratio 33 (6-26); Bilirubin,Total 0.7 mg/dL (0.3-1.0); Blood Urea Nitrogen 18 mg/dL (8-23); Calcium 7.5 mg/dL (8.6-10.3); Carbon Dioxide 21 mEq/L (23-29); Chloride 108 mEq/L (98-107); Glucose 90 mg/dL (70-105); Magnesium 1.6 mg/dL (1.6-2.6); Osmolality,Calculated 285 (280-300); Phosphorous 2.9 mg/dL (2.7-4.5); Potassium 3.6 mEq/L (3.5-5.1); Sodium 137 mEq/L (136-145); Total Protein 4.9 g/dL (6.4-8.9); eGFR For African Americans > 60 (> 60); eGFR For Non-African Americans > 60 (> 60)
[2022-06-14] MEDS: Piperacillin/Tazobactam 3.375 GM in 0.9 % Sodium Chloride Mini Bag 100 ML IVPB SCH ×2 (07:41→15:04)
[2022-06-14] MEDS: Apixaban 5 MG TABLET PO SCH ×2 (09:13→20:08)
[2022-06-14] MEDS: DilTIAZem CD (24hr) 180 MG CAP.ER.24H PO SCH (09:13)
[2022-06-14] MEDS: Megestrol Acetate 400 MG/10 ML UDC PO SCH ×2 (09:13→20:08)
[2022-06-14 18:08] LABS: Hematocrit 26.5 % (37.5-50.1); Hemoglobin 8.9 g/dL (12.9-16.9)
[2022-06-15] MEDS: 0.9 % Sodium Chloride 1,000 ML IVC SCH ×2 (04:28→14:05)
[2022-06-15 04:50] LABS: Basophils % 0.6 %; Eosinophils # 0.2 K/mcL (0.0-0.6); Eosinophils % 2.5 %; Hematocrit 25.1 % (37.5-50.1); Hemoglobin 8.2 g/dL (12.9-16.9); Immature Granulocytes % 0.3 % (0-4); Lymphocytes # 1.1 K/mcL (0.6-4.6); Lymphocytes % 17.3 %; Mean Corpuscular HGB Conc 32.7 g/dL (31.6-35.5); Mean Corpuscular Hemoglobin 31.8 pg (28.0-33.3); Mean Corpuscular Volume 97.3 fL (83.0-100.0); Mean Platelet Volume 9.2 fL (9.4-12.4); Monocytes # 0.5 K/mcL (0.0-1.3); Neutrophils # 4.6 K/mcL (1.6-8.9); Platelet Count 198 K/mcL (140-400); Red Blood Count 2.58 M/mcL (4.19-5.50); Red Cell Distribution Width 16.2 % (11.5-14.5); Segmented Neutrophils % 72.3 %; White Blood Count 6.4 K/mcL (4.3-11.1)
[2022-06-15 05:10] LABS: Alanine Aminotransferase 21 Units/L (7-52); Albumin 2.8 g/dL (3.5-5.7); Albumin/Globulin Ratio 1.3 (1.1-2.2); Alkaline Phosphatase 112 Units/L (34-104); Aspartate Amino Transferase 19 Units/L (13-39); BUN/Creatinine Ratio 19 (6-26); Bilirubin,Total 0.7 mg/dL (0.3-1.0); Blood Urea Nitrogen 11 mg/dL (8-23); Calcium 7.6 mg/dL (8.6-10.3); Carbon Dioxide 21 mEq/L (23-29); Chloride 111 mEq/L (98-107); Globulin 2.1 g/dL (2.4-3.5); Glucose 92 mg/dL (70-105); Osmolality,Calculated 285 (280-300); Potassium 3.8 mEq/L (3.5-5.1); Sodium 138 mEq/L (136-145); Total Protein 4.9 g/dL (6.4-8.9); eGFR For African Americans > 60 (> 60); eGFR For Non-African Americans > 60 (> 60)
[2022-06-15] MEDS: DilTIAZem CD (24hr) 180 MG CAP.ER.24H PO SCH (08:20)
[2022-06-15] MEDS: Apixaban 5 MG TABLET PO SCH ×2 (08:20→21:16)
[2022-06-15] MEDS: Megestrol Acetate 400 MG/10 ML UDC PO SCH ×2 (08:21→21:16)
[2022-06-16] MEDS: 0.9 % Sodium Chloride 1,000 ML IVC SCH ×3 (00:54→11:33)
[2022-06-16 06:10] LABS: Basophils % 0.5 %; Eosinophils # 0.2 K/mcL (0.0-0.6); Eosinophils % 2.9 %; Hematocrit 28.6 % (37.5-50.1); Hemoglobin 9.5 g/dL (12.9-16.9); Immature Granulocytes % 0.3 % (0-4); Lymphocytes # 1.3 K/mcL (0.6-4.6); Lymphocytes % 20.4 %; Mean Corpuscular HGB Conc 33.2 g/dL (31.6-35.5); Mean Corpuscular Hemoglobin 32.1 pg (28.0-33.3); Mean Corpuscular Volume 96.6 fL (83.0-100.0); Mean Platelet Volume 9.3 fL (9.4-12.4); Monocytes # 0.5 K/mcL (0.0-1.3); Monocytes % 7.9 %; Neutrophils # 4.2 K/mcL (1.6-8.9); Platelet Count 227 K/mcL (140-400); Red Blood Count 2.96 M/mcL (4.19-5.50); Red Cell Distribution Width 16.1 % (11.5-14.5); White Blood Count 6.2 K/mcL (4.3-11.1)
[2022-06-16 07:14] VITALS: O2SAT 97
[2022-06-16 08:37] LABS: Alanine Aminotransferase 22 Units/L (7-52); Albumin 2.9 g/dL (3.5-5.7); Albumin/Globulin Ratio 1.2 (1.1-2.2); Alkaline Phosphatase 125 Units/L (34-104); Aspartate Amino Transferase 18 Units/L (13-39); BUN/Creatinine Ratio 13 (6-26); Bilirubin,Total 0.8 mg/dL (0.3-1.0); Blood Urea Nitrogen 7 mg/dL (8-23); Calcium 7.8 mg/dL (8.6-10.3); Carbon Dioxide 22 mEq/L (23-29); Chloride 111 mEq/L (98-107); Globulin 2.4 g/dL (2.4-3.5); Glucose 78 mg/dL (70-105); Osmolality,Calculated 283 (280-300); Potassium 3.7 mEq/L (3.5-5.1); Sodium 138 mEq/L (136-145); Total Protein 5.3 g/dL (6.4-8.9); eGFR For African Americans > 60 (> 60); eGFR For Non-African Americans > 60 (> 60)
[2022-06-16] MEDS: DilTIAZem CD (24hr) 180 MG CAP.ER.24H PO SCH (09:07)
[2022-06-16] MEDS: Apixaban 5 MG TABLET PO SCH (09:07)
[2022-06-16 11:14] VITALS: BP 108/63; PULSE 99; TEMP 98.6
== END 2022-06-16 11:56 | disposition home health service (06) ==
LOC: 3BNU 18:59 → EMEROOARM 18:59 → SUATTDRO 06-14 00:52 → 3BNU 06-14 01:27
PROVIDERS: ADMIT Internal Medicine; ATTEND Registered Nurse

== ENCOUNTER 2022-06-19 10:22 | Inpatient (IN) ==
[2022-06-19] MEDS ORDERED: Pantoprazole 40 MG VIAL IVP ONE (10:36)
[2022-06-19] MEDS ORDERED: 0.9 % Sodium Chloride 1,000 ML IVC ONE ×2 (10:38→11:03)
[2022-06-19] MEDS ORDERED: Iopamidol - 370 500 ML MLS IVP ONE (10:42)
[2022-06-19 10:59] LABS: Basophils % 0.1 %; Hematocrit 29.2 % (37.5-50.1); Hemoglobin 9.8 g/dL (12.9-16.9); Immature Granulocytes % 0.5 % (0-4); Lymphocytes # 0.9 K/mcL (0.6-4.6); Mean Corpuscular HGB Conc 33.6 g/dL (31.6-35.5); Mean Corpuscular Volume 95.4 fL (83.0-100.0); Mean Platelet Volume 9.4 fL (9.4-12.4); Monocytes # 0.5 K/mcL (0.0-1.3); Monocytes % 4.5 %; Neutrophils # 10.1 K/mcL (1.6-8.9); Platelet Count 309 K/mcL (140-400); Red Blood Count 3.06 M/mcL (4.19-5.50); Red Cell Distribution Width 16.2 % (11.5-14.5); Segmented Neutrophils % 86.9 %
[2022-06-19 11:00] LABS: White Blood Count 11.6 K/mcL (4.3-11.1)
[2022-06-19 11:08] LABS: INR 1.6; Prothrombin Time 18.2 Seconds (9.4-12.1)
[2022-06-19 11:17] LABS: Alanine Aminotransferase 19 Units/L (7-52); Albumin 3.3 g/dL (3.5-5.7); Albumin/Globulin Ratio 1.2 (1.1-2.2); Alkaline Phosphatase 156 Units/L (34-104); Aspartate Amino Transferase 19 Units/L (13-39); BUN/Creatinine Ratio 28 (6-26); Bilirubin,Total 0.8 mg/dL (0.3-1.0); Blood Urea Nitrogen 25 mg/dL (8-23); Calcium 8.2 mg/dL (8.6-10.3); Carbon Dioxide 18 mEq/L (23-29); Chloride 105 mEq/L (98-107); Globulin 2.7 g/dL (2.4-3.5); Glucose 131 mg/dL (70-105); Lipase 6 Units/L (11-82); Magnesium 1.7 mg/dL (1.6-2.6); Osmolality,Calculated 284 (280-300); Potassium 4.3 mEq/L (3.5-5.1); Sodium 134 mEq/L (136-145); Troponin I < 0.03 ng/mL (< 0.04); eGFR For African Americans > 60 (> 60); eGFR For Non-African Americans > 60 (> 60)
[2022-06-19 13:21] LABS: Bilirubin,Urine Negative (Negative); Blood,Urine Large (Negative); Clarity,Urine Clear (Clear); Color,Urine Colorless (Yellow); Glucose,Urine (UA) Normal (Normal); Ketones,Urine Negative (Negative); Leukocyte Esterase,Urine Small (Negative); Nitrite,Urine Negative (Negative); PH,Urine 6.5 pH Units (5.0-8.0); Protein,Urine 30 mg/dL (Neg-Trace); RBC,Urine TNTC per hpf (0-3); Specific Gravity,Urine > 1.030 (1.010-1.025); Squamous Epithelial Cell,Urine Few per hpf (None-Few); Urobilinogen,Urine Normal (Normal); WBC,Urine 15-30 per hpf (0-3)
[2022-06-19] MEDS ORDERED: Iopamidol - 370 500 ML MLS PO ONE (15:41)
[2022-06-19] MEDS: DilTIAZem 50 MG/50 ML IV.SOLN IVC SCH ×3 (16:08→22:58)
[2022-06-19] MEDS ORDERED: *HR* Metoprolol 5 MG/5 ML VIAL IVP ONE (17:38)
[2022-06-19] MEDS ORDERED: Naloxone 0.4 MG/ML INJ IVP PRN (17:54)
[2022-06-19] MEDS ORDERED: Magnesium Sulfate 1 GM/102 ML PIGGYBACK IVPB ONE (17:56)
[2022-06-19] MEDS ORDERED: Ringers Solution, Lactated 1,000 ML IVC SCH (18:00)
[2022-06-19] MEDS ORDERED: DilTIAZem 50 MG in 0.9 % Sodium Chloride 40 ML IVC SCH (18:15)
[2022-06-19] MEDS: Pantoprazole 40 MG VIAL IVP SCH (18:55)
[2022-06-20 01:23] LABS: Basophils % 0.2 %; Eosinophils % 0.1 %; Hematocrit 25.5 % (37.5-50.1); Hemoglobin 8.6 g/dL (12.9-16.9); Immature Granulocytes % 0.3 % (0-4); Lymphocytes # 1.4 K/mcL (0.6-4.6); Lymphocytes % 15.7 %; Mean Corpuscular HGB Conc 33.7 g/dL (31.6-35.5); Mean Corpuscular Volume 94.8 fL (83.0-100.0); Mean Platelet Volume 8.9 fL (9.4-12.4); Monocytes # 0.6 K/mcL (0.0-1.3); Monocytes % 7.3 %; Neutrophils # 6.6 K/mcL (1.6-8.9); Platelet Count 257 K/mcL (140-400); Red Blood Count 2.69 M/mcL (4.19-5.50); Red Cell Distribution Width 16.5 % (11.5-14.5); Segmented Neutrophils % 76.4 %; White Blood Count 8.6 K/mcL (4.3-11.1)
[2022-06-20 01:41] LABS: BUN/Creatinine Ratio 38 (6-26); Blood Urea Nitrogen 26 mg/dL (8-23); Calcium 7.9 mg/dL (8.6-10.3); Carbon Dioxide 19 mEq/L (23-29); Chloride 107 mEq/L (98-107); Glucose 100 mg/dL (70-105); Magnesium 1.9 mg/dL (1.6-2.6); Osmolality,Calculated 281 (280-300); Potassium 4.2 mEq/L (3.5-5.1); Sodium 133 mEq/L (136-145); eGFR For African Americans > 60 (> 60); eGFR For Non-African Americans > 60 (> 60)
[2022-06-20] MEDS: DilTIAZem 50 MG/50 ML IV.SOLN IVC SCH ×4 (03:14→18:14)
[2022-06-20] MEDS: Pantoprazole 40 MG VIAL IVP SCH ×2 (05:21→18:13)
[2022-06-20] MEDS: *HR* Metoprolol 5 MG/5 ML VIAL IVP PRN ×2 (10:58→22:46)
[2022-06-20] MEDS: Ondansetron 4 MG/2 ML VIAL IVP PRN ×2 (11:29→21:47)
[2022-06-21 03:24] LABS: Basophils % 0.2 %; Hematocrit 27.3 % (37.5-50.1); Hemoglobin 8.9 g/dL (12.9-16.9); Immature Granulocytes % 0.5 % (0-4); Lymphocytes # 0.8 K/mcL (0.6-4.6); Lymphocytes % 8.4 %; Mean Corpuscular HGB Conc 32.6 g/dL (31.6-35.5); Mean Corpuscular Hemoglobin 31.6 pg (28.0-33.3); Mean Corpuscular Volume 96.8 fL (83.0-100.0); Mean Platelet Volume 9.3 fL (9.4-12.4); Monocytes # 0.4 K/mcL (0.0-1.3); Monocytes % 4.6 %; Neutrophils # 7.9 K/mcL (1.6-8.9); Platelet Count 292 K/mcL (140-400); Red Blood Count 2.82 M/mcL (4.19-5.50); Red Cell Distribution Width 16.7 % (11.5-14.5); Segmented Neutrophils % 86.3 %; White Blood Count 9.2 K/mcL (4.3-11.1)
[2022-06-21 03:39] LABS: BUN/Creatinine Ratio 43 (6-26); Blood Urea Nitrogen 26 mg/dL (8-23); Calcium 8.3 mg/dL (8.6-10.3); Carbon Dioxide 22 mEq/L (23-29); Chloride 109 mEq/L (98-107); Glucose 106 mg/dL (70-105); Osmolality,Calculated 295 (280-300); Potassium 4.1 mEq/L (3.5-5.1); Sodium 140 mEq/L (136-145); eGFR For African Americans > 60 (> 60); eGFR For Non-African Americans > 60 (> 60)
[2022-06-21] MEDS: Pantoprazole 40 MG VIAL IVP SCH ×2 (06:03→17:17)
[2022-06-21] MEDS: *HR* Metoprolol 5 MG/5 ML VIAL IVP PRN (06:13)
[2022-06-21] MEDS ORDERED: Milk and Molasses Enema 200 ML RC STA (06:33)
[2022-06-21] MEDS: Bisacodyl 10 MG RECTAL SUPPOSITORY RC SCH (08:29)
[2022-06-21] MEDS ORDERED: Apixaban 5 MG TABLET PO SCH ×2 (10:00→21:00)
[2022-06-21] MEDS: DilTIAZem CD (24hr) 180 MG CAP.ER.24H PO SCH (10:02)
[2022-06-21] MEDS: Venlafaxine XR (24 HR) 37.5 MG CAP.ER.24H PO SCH (10:19)
[2022-06-21] MEDS: Mirtazapine 15 MG TABLET PO SCH ×2 (10:19→19:58)
[2022-06-21] MEDS ORDERED: *HR* Metoprolol 5 MG/5 ML VIAL IVP ONE ×2 (12:08→13:50)
[2022-06-21] MEDS: DilTIAZem 50 MG/50 ML IV.SOLN IVC SCH ×2 (15:45→20:39)
[2022-06-21] MEDS: Apixaban 2.5 MG TABLET PO SCH (19:57)
[2022-06-22] MEDS: DilTIAZem 50 MG/50 ML IV.SOLN IVC SCH ×3 (02:17→19:25)
[2022-06-22 03:41] LABS: Basophils % 0.1 %; Eosinophils % 0.3 %; Hematocrit 26.5 % (37.5-50.1); Hemoglobin 8.8 g/dL (12.9-16.9); Immature Granulocytes % 0.4 % (0-4); Lymphocytes # 0.9 K/mcL (0.6-4.6); Lymphocytes % 8.7 %; Mean Corpuscular HGB Conc 33.2 g/dL (31.6-35.5); Mean Corpuscular Hemoglobin 32.7 pg (28.0-33.3); Mean Corpuscular Volume 98.5 fL (83.0-100.0); Mean Platelet Volume 9.4 fL (9.4-12.4); Monocytes # 0.8 K/mcL (0.0-1.3); Monocytes % 7.1 %; Platelet Count 275 K/mcL (140-400); Red Blood Count 2.69 M/mcL (4.19-5.50); Red Cell Distribution Width 16.8 % (11.5-14.5); Segmented Neutrophils % 83.4 %; White Blood Count 10.8 K/mcL (4.3-11.1)
[2022-06-22 04:00] LABS: BUN/Creatinine Ratio 47 (6-26); Blood Urea Nitrogen 26 mg/dL (8-23); Calcium 7.9 mg/dL (8.6-10.3); Carbon Dioxide 22 mEq/L (23-29); Chloride 107 mEq/L (98-107); Glucose 95 mg/dL (70-105); Osmolality,Calculated 289 (280-300); Potassium 3.8 mEq/L (3.5-5.1); Sodium 137 mEq/L (136-145); eGFR For African Americans > 60 (> 60); eGFR For Non-African Americans > 60 (> 60)
[2022-06-22] MEDS: Pantoprazole 40 MG VIAL IVP SCH (06:35)
[2022-06-22] MEDS: Apixaban 2.5 MG TABLET PO SCH (08:48)
[2022-06-22] MEDS: Venlafaxine XR (24 HR) 37.5 MG CAP.ER.24H PO SCH (08:48)
[2022-06-22] MEDS: DilTIAZem CD (24hr) 180 MG CAP.ER.24H PO SCH (08:49)
[2022-06-22] MEDS: Bisacodyl 10 MG RECTAL SUPPOSITORY RC SCH (08:50)
[2022-06-22 15:46] LABS: Bilirubin,Urine Negative (Negative); Blood,Urine Large (Negative); Clarity,Urine Ex.Turbid (Clear); Color,Urine Light-Brown (Yellow); Glucose,Urine (UA) Normal (Normal); Ketones,Urine 40 mg/dL (Negative); Leukocyte Esterase,Urine Large (Negative); Mucus,Urine Few per lpf (None-Few); Nitrite,Urine Negative (Negative); Protein,Urine 100 mg/dL (Neg-Trace); RBC,Urine TNTC per hpf (0-3); Urobilinogen,Urine Normal (Normal); WBC,Urine TNTC per hpf (0-3)
[2022-06-22] MEDS: Mirtazapine 15 MG TABLET PO SCH (21:49)
[2022-06-23 03:27] LABS: Basophils % 0.1 %; Eosinophils # 0.1 K/mcL (0.0-0.6); Eosinophils % 0.6 %; Hematocrit 25.6 % (37.5-50.1); Hemoglobin 8.2 g/dL (12.9-16.9); Immature Granulocytes % 0.2 % (0-4); Lymphocytes % 12.8 %; Mean Corpuscular Hemoglobin 31.7 pg (28.0-33.3); Mean Corpuscular Volume 98.8 fL (83.0-100.0); Mean Platelet Volume 9.2 fL (9.4-12.4); Monocytes # 0.5 K/mcL (0.0-1.3); Monocytes % 6.3 %; Neutrophils # 6.4 K/mcL (1.6-8.9); Platelet Count 247 K/mcL (140-400); Red Blood Count 2.59 M/mcL (4.19-5.50); Red Cell Distribution Width 16.7 % (11.5-14.5); White Blood Count 8.1 K/mcL (4.3-11.1)
[2022-06-23 03:51] LABS: BUN/Creatinine Ratio 41 (6-26); Blood Urea Nitrogen 26 mg/dL (8-23); Calcium 7.3 mg/dL (8.6-10.3); Carbon Dioxide 20 mEq/L (23-29); Chloride 108 mEq/L (98-107); Glucose 80 mg/dL (70-105); Osmolality,Calculated 288 (280-300); Potassium 3.8 mEq/L (3.5-5.1); Sodium 137 mEq/L (136-145); eGFR For African Americans > 60 (> 60); eGFR For Non-African Americans > 60 (> 60)
[2022-06-23] MEDS: Venlafaxine XR (24 HR) 37.5 MG CAP.ER.24H PO SCH (08:54)
[2022-06-23] MEDS: DilTIAZem CD (24hr) 180 MG CAP.ER.24H PO SCH (08:56)
[2022-06-23] MEDS: Bisacodyl 10 MG RECTAL SUPPOSITORY RC SCH (08:56)
[2022-06-23] MEDS: Sulfamethoxazole/Trimeth DS 1 EACH TABLET PO SCH ×2 (11:41→20:41)
[2022-06-23 14:39] LABS: Hematocrit 27.4 % (37.5-50.1)
[2022-06-23] MEDS: Mirtazapine 15 MG TABLET PO SCH (20:41)
[2022-06-24 03:36] LABS: Basophils % 0.3 %; Eosinophils # 0.1 K/mcL (0.0-0.6); Eosinophils % 1.6 %; Hematocrit 28.1 % (37.5-50.1); Hemoglobin 9.1 g/dL (12.9-16.9); Immature Granulocytes % 0.4 % (0-4); Lymphocytes # 1.2 K/mcL (0.6-4.6); Lymphocytes % 15.3 %; Mean Corpuscular HGB Conc 32.4 g/dL (31.6-35.5); Mean Corpuscular Hemoglobin 32.5 pg (28.0-33.3); Mean Corpuscular Volume 100.4 fL (83.0-100.0); Mean Platelet Volume 9.2 fL (9.4-12.4); Monocytes # 0.5 K/mcL (0.0-1.3); Monocytes % 6.6 %; Platelet Count 246 K/mcL (140-400); Red Cell Distribution Width 16.8 % (11.5-14.5); Segmented Neutrophils % 75.8 %; White Blood Count 7.9 K/mcL (4.3-11.1)
[2022-06-24 03:56] LABS: BUN/Creatinine Ratio 33 (6-26); Blood Urea Nitrogen 20 mg/dL (8-23); Calcium 7.2 mg/dL (8.6-10.3); Carbon Dioxide 21 mEq/L (23-29); Chloride 110 mEq/L (98-107); Glucose 90 mg/dL (70-105); Osmolality,Calculated 284 (280-300); Potassium 3.4 mEq/L (3.5-5.1); Sodium 136 mEq/L (136-145); eGFR For African Americans > 60 (> 60); eGFR For Non-African Americans > 60 (> 60)
[2022-06-24 08:17] VITALS: O2SAT 93
[2022-06-24] MEDS: Bisacodyl 10 MG RECTAL SUPPOSITORY RC SCH (08:50)
[2022-06-24] MEDS: Venlafaxine XR (24 HR) 37.5 MG CAP.ER.24H PO SCH (08:51)
[2022-06-24] MEDS: Sulfamethoxazole/Trimeth DS 1 EACH TABLET PO SCH (08:52)
[2022-06-24] MEDS: DilTIAZem CD (24hr) 180 MG CAP.ER.24H PO SCH (08:52)
[2022-06-24] MEDS ORDERED: Megestrol Acetate 400 MG/10 ML UDC PO SCH (09:00)
[2022-06-24 11:11] VITALS: BP 98/65; PULSE 89; TEMP 99.1
== END 2022-06-24 13:12 | disposition home health service (06) | DRG 389 ==
LOC: EMEROOARM 10:22 → 2ANU 10:22 → SUATTDRO 06-20 12:27
PROVIDERS: ADMIT Internal Medicine; ATTEND Student in an Organized Health Care Education/Training Program